=== PATIENT | male | born 1945 | race Caucasian/White ===

== ENCOUNTER 2018-12-20 14:17 | Inpatient (IN) | payer BC, MEDICARE ==
[2018-12-20 14:43] LABS: #Basophils 0.1 thou/uL (0.0-0.2); #Eosinphils 0.3 thou/uL (0.0-0.7); #Lymphocytes 2.2 thou/uL (1.20-3.40); #Monocytes 0.8 thou/uL (0.11-0.59); #Neutrophils 6.7 thou/uL (1.40-6.50); %Basophils 0.7 % (0.0-1.0); %Eosinophils 3.1 % (0.0-10.0); %Monocytes 7.6 % (0.0-10.0); %Neutrophils 66.7 % (42.0-75.0); Hemoglobin 17.8 g/dL (14.0-18.0); Mean Corpuscular Hemoglobin 32.5 pg (27.0-31.0); Mean Corpuscular Volume 98.5 fL (78.0-98.0); Platelet Count 229 thou/uL (130-400); RBC Distribution Width 12.9 % (11.5-14.5); Red Blood Cell (RBC) Count 5.48 mill/uL (4.70-6.10)
--- NOTE | 2018-12-20 15:01 | RAD ---
SINGLE VIEW CHEST: Date: 12/20/18 COMPARISON: 04/21/09. HISTORY: Atrial fibrillation. Chest pain. FINDINGS: Single view of the chest shows an enlarged cardiomediastinal silhouette. There is no evidence of cons olidation, mass, or pleural effusion. No pneumothorax is seen. IMPRESSION: No evidence of acute cardiopulmonary disease. POS: [facility]
[2018-12-20 15:07] LABS: ALT (SGPT) 20 U/L (8-55); AST (SGOT) 17 U/L (5-34); Albumin 4.2 g/dL (3.4-4.8); Alkaline Phosphatase 88 U/L (40-150); Anion Gap 15 mmol/L (10-20); BUN (Urea Nitrogen) 15 mg/dL (8.4-25.7); CK (CPK) 54 U/L (30-200); Calc. Creatinine Clearance 0 mL/min (70-130); Calcium 9.6 mg/dL (7.8-10.44); Carbon Dioxide 20 mmol/L (23-31); Chloride 107 mmol/L (98-107); Estimated GFR-MDRD 78; Globulin 2.3 g/dL (2.4-3.5); Glucose 102 mg/dL (83-110); Potassium 4.5 mmol/L (3.5-5.1); Protein, Total 6.5 g/dL (5.8-8.1); Sodium 137 mmol/L (136-145)
[2018-12-20] MEDS ORDERED: Aspirin Chewable 81 MG TAB ONE (15:47)
[2018-12-20] MEDS ORDERED: Diltiazem 125 MG/25 ML ONE (16:51)
[2018-12-20] MEDS ORDERED: Enoxaparin Sodium 100 MG/ML SYRINGE ONE (17:03)
[2018-12-20] MEDS ORDERED: Communication Order-Pharmacy FS SCH (17:15)
[2018-12-20 17:40] LABS: Troponin I Less than 0.010 ng/mL (< 0.028)
[2018-12-20 18:26] VITALS: BMI 25.8
--- NOTE | 2018-12-20 18:45 | HP ---
The patient is a 73-year-old gentleman who presents for evaluation of palpitations and chest discomfo rt. The patient was recently seen for evaluation of palpitations. The patient underwent a cardiac orly luation including an echocardiogram which revealed a moderate decreased left ventricular ejection of 38%. He also found to be in atrial fibrillation. The patient was treated with aspirin. Patient underw ent a Cardiolite stress test that revealed evidence of ischemia. He presented to the Emergency Room w ith rapid palpitations and chest discomfort. The patient reported that for the past 24 hours he has h ad mid sternal chest discomfort. This has been persistent and uncomfortable. He presented with a rapi d heart rate. He states his chest pain is much less severe. Patient denies having any dyspnea. PAST MEDICAL HISTORY: Significant for 1. Atrial fibrillation. 2. Hypertension. PAST SURGICAL HISTORY: TURP. FAMILY HISTORY: No strong family history of heart disease. ALLERGIES: No known drug allergies. MEDICATIONS: Aspirin one tablet daily.. REVIEW OF SYSTEMS: Ten point system otherwise unremarkable. PHYSICAL EXAMINATION: GENERAL: This is a well-developed gentleman in no acute distress with a blood pressure of 120/68. Hea rt rate is 80 and irregular. NECK: Showed no jugular venous distention. LUNGS: clear to auscultation. HEART: Irregular rate and rhythm. Normal S1 and S2. No murmurs. ABDOMEN: Nondistended. EXTREMITIES: Show no edema. VASCULAR: Radial pulses are 2+. LABORATORY RESULTS: White blood count 10.0, hemoglobin 17.8, hematocrit 54.0, platelets 229,000. Sodium 137, potassium 4. 5, chloride 107, bicarbonate 20, BUN 15, creatinine 0.95, glucose 102, Troponin less than 0.01. EKG reveals atrial fibrillation with poor R-wave progression. T-wave suggestive of possible previous inferior infarct. IMPRESSION: 1. Rapid atrial fibrillation. 2. Cardiomyopathy. 3. Hypertension. This gentleman presents with rapid atrial fibrillation. He has been treated with IV Cardizem. His tro ponin levels reveal no evidence of myocardial infarction and no acute ST/T wave changes. The patient will be admitted and treated with Lovenox. He will undergo an invasive evaluation as scheduled by Dr. Walls. PLAN: 1. Admit to telemetry. 2. Continued IV Cardizem. 3. Proceed with catheterization.
[2018-12-20 20:56] LABS: Troponin I Less than 0.010 ng/mL (< 0.028)
[2018-12-20] MEDS ORDERED: Atorvastatin Calcium 40 MG TAB PO SCH (21:00)
[2018-12-21] MEDS ORDERED: Aspirin 325 mg Enteric Coated Tablet PO SCH (09:00)
[2018-12-21] MEDS ORDERED: Iopamidol 370 76% 50 ML VIAL FS ONE (09:43)
[2018-12-21] MEDS ORDERED: Iopamidol 370 76% 100 ML VIAL ONE (09:43)
[2018-12-21] MEDS ORDERED: Midazolam HCl 2 mg/2 ml Vial ONE (09:56)
[2018-12-21] MEDS ORDERED: Heparin 10,000 UNITS/1 ML VIAL ONE (10:21)
[2018-12-21] MEDS ORDERED: Nitroglycerin 100MG/250ML BOT 250 ML ONE (10:21)
[2018-12-21] MEDS ORDERED: Verapamil 5 MG/2 ML VIAL ONE (10:22)
[2018-12-21] MEDS ORDERED: Nitroglycerin 0.4 MG TAB (25 Tab Bottle) SL PRN (10:54)
[2018-12-21] MEDS ORDERED: Acetaminophen/Codeine 30-300mg Tablet PO PRN ×2 (10:54)
[2018-12-21] MEDS ORDERED: Sodium Chloride 0.9% 200 ML IV PRN (10:54)
[2018-12-21] MEDS ORDERED: Apixaban 5 MG TAB PO SCH ×2 (11:15→21:00)
[2018-12-21] MEDS ORDERED: Lisinopril 5 MG TAB PO SCH (12:00)
[2018-12-21] MEDS ORDERED: Sodium Chloride 0.9% 10 ML ONE (13:20)
[2018-12-21 13:28] LABS: Hemoglobin 17.3 g/dL (14.0-18.0); Platelet Count 216 thou/uL (130-400)
--- NOTE | 2018-12-21 13:56 | PDOC.CTH ---
Cardiology Progress Note - Subjective The pt seen and examined. No overnight events. No cardiac complaints. - Objective Vital Signs Temp Pulse Resp BP Pulse Ox 12/21/18 12:10 97.8 F 63 18 127/89 94 L 12/21/18 11:52 69 12/21/18 10:40 97.6 F 69 18 118/71 95 12/21/18 08:10 97.6 F 57 L 16 116/72 94 L 12/21/18 03:37 98.0 F 72 20 119/74 Weight 206 lb 14.4 oz - Physical Examination General/Neuro: alert & oriented x3 Neck: no JVD present Lungs: CTA Heart: other: (irregular) Abdomen: soft Extremities: other: (No edema) - Telemetry Telemetry Rhythm: afib - Labs Result Diagrams: 12/21/18 13:16 12/21/18 13:16 Troponin/CKMB Troponin I Less than 0.010 ng/mL (< 0.028) 12/20/18 20:22 - Assessment/Plan 1. Afib with RVR - diltiazem drip was stopped for HR down to 40s; On Coreg 1.56mg BID from today; On Eliquis 5mg BID; 2. 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 to monitor 3. CAD with s/p LHC with 90% stenosis in Diag 2 and mild Plaq in Lx Cx on 2018 - On Coreg, ASA, and Lipitor 40mg qd 4. HTN - stable MAR reviewed * When the pt's VS is stale with Coreg, the pt can be d/cassandra home. the pt will f /u with Dr Walls' office within 2wks. * Within 4-6 wks with Eliquis, the pt will have MAGDALENA/DCCV by Dr Walls. Coupon for Eliquis 30 days free trial will be given to the pt. Pt. seen and eval. by me. I agree with the A/P by the [employer]. Review of Systems - Review of Systems Constitutional: reports: no symptoms reported EENTM: reports: no symptoms reported Respiratory: reports: no symptoms reported Cardiac (ROS): reports: no symptoms reported ABD/GI: reports: no symptoms reported : reports: no symptoms reported Musculoskeletal: reports: no symptoms reported
[2018-12-21 16:44] VITALS: BP 123/78; TEMP 97.4
[2018-12-21] MEDS ORDERED: Carvedilol 3.125 MG TAB PO SCH ×2 (17:00)
[2018-12-21] MEDS ORDERED: Aspirin Chewable 81 MG TAB PO SCH (21:00)
== END 2018-12-21 17:20 | disposition home or self-care (01) | DRG 287 ==
LOC: ERS 14:17 → 2NO 18:23
PROVIDERS: ADMIT Internal Medicine Cardiovascular Disease; ATTEND Internal Medicine Cardiovascular Disease
PROC: 4A023N7 Measurement of Cardiac Sampling and Pressure, Left Heart, Percutaneous Approach (ICD-10-PCS; principal; 2018-12-21)
PROC: B2111ZZ Fluoroscopy of Multiple Coronary Arteries using Low Osmolar Contrast (ICD-10-PCS; 2018-12-21)
PROC: B2151ZZ Fluoroscopy of Left Heart using Low Osmolar Contrast (ICD-10-PCS; 2018-12-21)
DX: I48.0 Paroxysmal atrial fibrillation (principal); I10 Essential (primary) hypertension; I42.9 Cardiomyopathy, unspecified; Z79.82 Long term (current) use of aspirin; I25.10 Atherosclerotic heart disease of native coronary artery without angina pectoris
CPT/HCPCS: 36415; 71045; 80053; 82550; 82565; 83880; 84484; 85014; 85018; 85025; 85049; 93005; 93458; 94760; 96365; 96372; 96376; 99152; 99153; C1769; J1644; J1650; J2250

== ENCOUNTER 2019-01-25 07:34 | Day surgery (SDC) | payer BC, MEDICARE ==
[2019-01-24 13:52] VITALS: BMI 25.0
[2019-01-25] MEDS ORDERED: PROPOFOL 200 MG/20 ML VIAL ONE (10:32)
--- NOTE | 2019-01-25 14:51 | ECHO ---
CARDIOLOGY PROCEDURE NOTE: Date: 01/25/19 PROCEDURE: Transesophageal echocardiogram. INDICATION FOR PROCEDURE: 73-year-old male patient with atrial fibrillation and rapid ventricular response. He has been treated for a month on Eliquis, as well as on beta blockers and baby aspirin. He was advised to undergo a tr ansesophageal echocardiogram to rule out evidence of intracranial thrombi or masses, or left atrial a ppendage thrombus. DESCRIPTION OF PROCEDURE: The patient was taken to the recovery area, where he underwent short-acting propofol. Transesophageal probe was easily passed down the distal esophagus. IMPRESSION: 1. Mild to moderate decrease in left ventricular systolic function. Ejection fraction estimated at 3 5-40%. 2. Mild aortic valve sclerosis, but no evidence of aortic valve stenosis or regurgitation. 3. Moderate mitral valve regurgitation. 4. Mild tricuspid valve regurgitation. 5. No evidence of left atrial or left atrial appendage thrombus. 6. Left atrial dilatation. 7. Good flow noted into the left atrial appendage. 8. Small patent foramen ovale with a left to right shunt.
--- NOTE | 2019-01-25 14:54 | OP ---
CARDIOLOGY PROCEDURE NOTE: Date: 01/25/19 PROCEDURE: Electrical cardioversion. PROCEDURE DETAILS: This is a 73-year-old male patient with history of atrial fibrillation. He has been treated with oral anticoagulation. He was advised to undergo a transesophageal echocardiogram and then possibly an bertha ctrical cardioversion of the atrial fibrillation. The transesophageal echocardiogram did not show any evidence of left atrial appendage thrombus or any other atrial thrombi or masses. Using one attempt at 250 joules, he was successfully converted from his atrial fibrillation back to normal sinus rhythm with heart rate in the 70s. No complications or difficulties were encountered. He was given short-active propofol for the procedure.
--- NOTE | 2019-01-26 04:59 | DIS ---
DATE OF ADMISSION: 01/25/2019 DATE OF DISCHARGE: 01/25/2019 DATE OF PROCEDURE: As an outpatient was 01/25/2019. DIAGNOSES: 1. Atrial fibrillation with rapid ventricular response. 2. He also has a history of coronary artery disease involving the diagonal branch. 3. Hyperlipidemia. 4. He also had a transurethral resection of the prostate. DISCHARGE DIAGNOSES: 1. Atrial fibrillation with rapid ventricular response. 2. He also has a history of coronary artery disease involving the diagonal branch. 3. Hyperlipidemia. 4. He also had a transurethral resection of the prostate. PROCEDURES: In hospital included a transesophageal echocardiogram as well as electrocardioversion of atrial fibrillation back to sinus rhythm. DISCHARGE MEDICATIONS: Includes; 1. Atorvastatin 40 mg a day. 2. Coreg 3.125 mg half a tablet b.i.d. If the blood pressure increases and becomes more than 200 systolic, he will increase his Coreg to 3.125 mg b.i.d. 3. Lisinopril 5 mg a day. 4. Nitroglycerin as needed, sublingual. 5. Eliquis 5 mg b.i.d. He will follow with me in two weeks in the office. HOSPITAL COURSE: This very pleasant gentleman, 73-year-old, was found to have atrial fibrillation with rapid ventricular response. He also has a history of mild coronary artery disease. He underwent cardiac catheterization earlier this year and was found to have a 90% stenosis in the second diagonal branch with mild plaque in the left circumflex. Otherwise, no flow-limiting disease was noted. Ejection fraction was estimated at 35% to 40%. He then was noted to have atrial fibrillation with a heart rate in the 80s to 90s. He was started on oral anticoagulation and then was advised to undergo electrical cardioversion if there was no evidence of left atrial appendage thrombus. He was taken to the recovery area today where he underwent the procedure without any difficulties or complications. On the transesophageal echocardiogram, there was no evidence of any thrombus. Using one attempt to 250 joules, he was successfully converted from his atrial fibrillation back to sinus rhythm. He remained stable with blood pressure and once he becomes awake and alert, he will be discharged to home and I will see him back in the office in two weeks. Job ID: [id number] [facility]
--- NOTE | 2019-01-28 17:51 | EKG ---
Test Reason : POST CARDIOVERSION Blood Pressure : / mmHG Vent. Rate : 055 BPM Atrial Rate : 055 BPM P-R Int : 156 ms QRS Dur : 088 ms QT Int : 434 ms P-R-T Axes : -13 -61 -12 degrees QTc Int : 415 ms Sinus bradycardia Left axis deviation Inferior infarct (cited on or before 20-DEC-2018) Abnormal ECG When compared with ECG of 20-DEC-2018 14:22, Sinus rhythm has replaced Atrial fibrillation Vent. rate has decreased BY 77 BPM Minimal criteria for Anterior infarct are no longer Present ST no longer depressed in Lateral leads Inverted T waves have replaced nonspecific T wave abnormality in Inferior leads Confirmed by PRASANTH GE (2) on 01/28/2019 5:51:43 PM Referred By: [facility] Confirmed By:PRASANTH GE
== END 2019-01-25 10:45 | disposition home or self-care (01) ==
LOC: CCL 07:34
PROVIDERS: ATTEND Internal Medicine Cardiovascular Disease
PROC: 5A2204Z Restoration of Cardiac Rhythm, Single (ICD-10-PCS; principal; 2019-01-25)
PROC: B24BZZ4 Ultrasonography of Heart with Aorta, Transesophageal (ICD-10-PCS; principal; 2019-01-25)
DX: I48.0 Paroxysmal atrial fibrillation (principal); Q21.1 Atrial septal defect; I35.8 Other nonrheumatic aortic valve disorders; I25.10 Atherosclerotic heart disease of native coronary artery without angina pectoris; I10 Essential (primary) hypertension; E78.2 Mixed hyperlipidemia; Z79.899 Other long term (current) drug therapy
CPT/HCPCS: 92960; 93005; 93010; 93312

== ENCOUNTER 2019-06-26 08:13 | Emergency (ER) | payer BC ==
[2019-06-26] MEDS ORDERED: Meclizine HCl 25 MG TAB ONE (08:30)
[2019-06-26] MEDS ORDERED: Ondansetron PF 4 MG/2 ML Vial ONE (08:32)
[2019-06-26 08:34] LABS: #Basophils 0.1 thou/uL (0.0-0.2); #Eosinphils 0.2 thou/uL (0.0-0.7); #Lymphocytes 1.4 thou/uL (1.20-3.40); #Monocytes 0.4 thou/uL (0.11-0.59); #Neutrophils 3.8 thou/uL (1.40-6.50); %Basophils 1.2 % (0.0-1.0); %Eosinophils 3.1 % (0.0-10.0); %Lymphocytes 24.2 % (21.0-51.0); %Monocytes 6.9 % (0.0-10.0); %Neutrophils 64.7 % (42.0-75.0); Hemoglobin 15.7 g/dL (14.0-18.0); Mean Corpuscular HGB CONC 35.2 g/dL (32.0-36.0); Mean Corpuscular Hemoglobin 34.6 pg (27.0-31.0); Mean Corpuscular Volume 98.3 fL (78.0-98.0); Mean Platelet Volume 6.2 fL (7.4-10.4); Platelet Count 217 thou/uL (130-400); RBC Distribution Width 12.3 % (11.5-14.5); Red Blood Cell (RBC) Count 4.53 mill/uL (4.70-6.10); White Blood Cell (WBC) Count 5.9 thou/uL (4.8-10.8)
--- NOTE | 2019-06-26 08:51 | RAD ---
FRONTAL VIEW CHEST: INDICATIONS: Emergency exam performed for atrial fibrillation and fatigue. COMPARISON: 12/20/2018 FINDINGS: The cardiac silhouette is accentuated by the portable technique. There is bilateral perihilar inters titial prominence. No effusion or discrete pneumothorax. Leads overly the chest, limiting detail. IMPRESSION: Prominent cardiac silhouette and pulmonary vasculature. Findings may relate to fluid overload from c ongestive heart failure. Correlate clinically. POS: [facility]
[2019-06-26 08:57] LABS: Albumin 4.1 g/dL (3.4-4.8)
[2019-06-26 08:58] LABS: Chloride 107 mmol/L (98-107); Potassium 4.1 mmol/L (3.5-5.1)
[2019-06-26 08:59] LABS: Calcium 8.8 mg/dL (7.8-10.44); Sodium 138 mmol/L (136-145)
[2019-06-26 09:00] LABS: Globulin 1.9 g/dL (2.4-3.5); Glucose 113 mg/dL (83-110)
[2019-06-26 09:01] LABS: Anion Gap 12 mmol/L (10-20); Carbon Dioxide 23 mmol/L (23-31)
[2019-06-26 09:02] LABS: Bilirubin, Total 0.7 mg/dL (0.2-1.2)
[2019-06-26 09:03] LABS: Alkaline Phosphatase 77 U/L (40-150); Calc. Creatinine Clearance 0 mL/min (70-130); Estimated GFR-MDRD Greater than 90
[2019-06-26 09:04] LABS: BUN (Urea Nitrogen) 27 mg/dL (8.4-25.7)
[2019-06-26 09:05] LABS: AST (SGOT) 22 U/L (5-34)
[2019-06-26 09:06] LABS: ALT (SGPT) 16 U/L (8-55); CK (CPK) 96 U/L (30-200)
[2019-06-26 10:53] LABS: Bilirubin Negative (Negative); Blood, Urine Negative (Negative); Clarity Clear (Clear); Glucose, Urine (Dipstick) Normal (Negative); Leukocyte Negative Leu/uL (Negative); Nitrite Negative (Negative); Protein, Urine (Dipstick) 10 mg/dL (Neg-Trace); Urobilinogen Normal mg/dL (Less than 2)
== END 2019-06-26 10:50 | disposition home or self-care (01) ==
LOC: ERS 08:13
DX: R53.83 Other fatigue (principal); R42 Dizziness and giddiness; I48.91 Unspecified atrial fibrillation; Z79.899 Other long term (current) drug therapy; Z79.01 Long term (current) use of anticoagulants
CPT/HCPCS: 36415; 71045; 80053; 81003; 82550; 83880; 84484; 85025; 93005; 96374; J2405; J8597

== ENCOUNTER 2019-08-14 11:59 | Outpatient (CLI) | payer BC ==
--- NOTE | 2019-08-14 12:57 | MRI ---
MRI brain with and without contrast: DATE: 08/14/2019 HISTORY: 74-year-old male with headache. TECHNIQUE: Multiplanar, multisequence MRI of the brain obtained pre and post IV injection of gadolinium based co ntrast agent. FINDINGS: There is no obstructive hydrocephalus. There is no midline shift or any other evidence of mass effect . There is no extra-axial fluid collection. There are mild chronic ischemic white matter changes due to microvascular atherosclerosis. There is otherwise no major intra-axial signal abnormality, abn ormal enhancement, mass, recent hemorrhage, or restricted diffusion. IMPRESSION: 1) mild chronic ischemic white matter changes, typical for age 74 years. 2) otherwise negative
== END 2019-08-14 12:00 | disposition home or self-care (01) ==
LOC: MRI 11:59
PROVIDERS: ATTEND Psychiatry & Neurology Neurology
DX: R51 Headache (principal); I67.82 Cerebral ischemia
CPT/HCPCS: 70553

== ENCOUNTER 2020-04-30 15:15 | Emergency (ER) | payer BC, OTHER ==
[2020-05-01 16:09] LABS: SARS-CoV-2 MS2 Positive; SARS-CoV-2 N Gene Negative; SARS-CoV-2 S Gene Negative; SARS-CoV-2 orf1ab Negative
== END 2020-04-30 15:32 | disposition home or self-care (01) ==
LOC: ERS 15:15
DX: Z20.828 Contact with and (suspected) exposure to other viral communicable diseases (principal); I48.91 Unspecified atrial fibrillation
CPT/HCPCS: 87635; 99283; U0003

== ENCOUNTER 2023-02-07 14:46 | Outpatient (CLI) | payer BC | END 2023-02-07 14:47 | disposition home or self-care (01) | LOC: RAD 14:46 | PROVIDERS: ATTEND Internal Medicine | DX: M79.632 Pain in left forearm (principal); M25.522 Pain in left elbow ==